=== PATIENT | female | born 1960 | race Caucasian/White ===

== ENCOUNTER → 2021-09-09 | Outpatient (CLI) | payer BC ==
[~2021-09-09] MED LIST: CLARITIN 1010 MG/TAB PO; MULTI VITAMINS1 TAB PO; NORCO 325 MG-51 TAB PO; REMICADE V100 MG/VIA IV; lisinopril PO
== END ==
LOC: MC.RAD 12:49
DX: C50.412 Malignant neoplasm of upper-outer quadrant of left female breast (principal)
CPT/HCPCS: A9520; A9541; C1769

== ENCOUNTER 2021-09-10 09:15 | Day surgery (SDC) | payer BC ==
[~2021-09-10] VITALS: Ht 172.7 cm; Wt 92.7 kg
[2021-09-10] MEDS ORDERED: CLARITIN 1010 MG/TAB PO (10:19)
[2021-09-10] MEDS ORDERED: lisinopril PO (10:19)
[2021-09-10] MEDS ORDERED: MULTI VITAMINS1 TAB PO (10:20)
[2021-09-10] MEDS ORDERED: REMICADE V100 MG/VIA IV (10:21)
[2021-09-10] MEDS ORDERED: NORCO 325 MG-51 TAB PO (14:29)
[2021-09-10 14:30] VITALS: BP 140/71; PULSE 61; TEMP 97.8
--- NOTE | 2021-09-10 14:30 | NUR ---
Patient arrived on cart, escorted by Sary LEWIS. Report obtained. Patient is tolerating ice chips well and is oriented x3, however she is very sleepy. Vitals obtained and are WNL. Daughters were brought in from the waiting room. Side rails x2. Call lanier is at bedside.
[2021-09-10 14:45] VITALS: BP 132/68; PULSE 50
--- NOTE | 2021-09-10 14:45 | NUR ---
Patient is more alert. Vitals obtained and continue to be WNL. Patient requested ice water and is tolerating it well. Patient was assisted sitting up in bed at this time.
--- NOTE | 2021-09-10 15:00 | NUR ---
Patient was given a warm muffin to eat with a fork. Patient is tolerating it well. Vitals obtained. Daughter asked about discharge. RN educated her on the discharge criteria and patient said she would try to use the bathroom after she finishes eating. Call lanier is within reach.
[2021-09-10 15:15] VITALS: BP 131/57; PULSE 56
--- NOTE | 2021-09-10 15:15 | NUR ---
Patient has finished her muffin and was assisted with ambulating to the bathroom by DEBBIE Walker and her daughter. Patient was able to successfully void and stated desire to go home. IV was discontinued at this time. Catheter tip intact and pressure dressing applied. Patient denied needing help changing into her personal clothes.
--- NOTE | 2021-09-10 15:30 | NUR ---
Discharge instructions were reviewed at this time with the patient and her two daughters. Educational material was reviewed at this time as well. Patient and her two daughters verbalized understanding of procedure and denied having any further questions. Patient requested another ice water for the ride home and said she did not need any pain medication before leaving. Related paperwork was signed.
--- NOTE | 2021-09-10 15:50 | NUR ---
Patient was escorted out via wheelchair to the main patient entrence by DEBBIE Walker and her two daughters. Her daughter Elli, has the discharge packet along with the patients personal belongings. Patient was transferred into the care of her two daughter and her son, who met us at the patient entrence to drive her home.
[2021-09-10 16:17] VITALS: BP 127/70; PULSE 105; TEMP 97.3
== END 2021-09-10 16:00 | disposition home or self-care (01) ==
LOC: SDCO 09:15
DX: C50.412 Malignant neoplasm of upper-outer quadrant of left female breast (principal); I10 Essential (primary) hypertension; D69.6 Thrombocytopenia, unspecified; M47.899 Other spondylosis, site unspecified; Z98.51 Tubal ligation status; Z79.899 Other long term (current) drug therapy; Z80.3 Family history of malignant neoplasm of breast
CPT/HCPCS: A4648; J0690; J1100; J1885; J2250; J2405; J2704; J3010; J7120